=== PATIENT | female | born 1980 | race Caucasian/White ===

== ENCOUNTER 2019-09-26 17:15 | Emergency (ER) | payer SELFPAY ==
[~2019-09-26] VITALS: Ht 162.6 cm; Wt 81.8 kg
[2019-09-26 19:12] VITALS: BP 112/79; PULSE 58; TEMP 98.6
== END 2019-09-26 19:13 | disposition home or self-care (01) ==
LOC: COL.ER 17:15
DX: S09.90XA Unspecified injury of head, initial encounter (principal); R40.2412 Glasgow coma scale score 13-15, at arrival to emergency department; Z90.49 Acquired absence of other specified parts of digestive tract; Z90.710 Acquired absence of both cervix and uterus; Y04.8XXA Assault by other bodily force, initial encounter

== ENCOUNTER 2019-10-01 19:09 | Emergency (ER) | payer SELFPAY ==
[~2019-10-01] VITALS: Ht 162.6 cm; Wt 81.8 kg
[2019-10-01 19:14] VITALS: BP 108/77; TEMP 97.6
[2019-10-01] MEDS ORDERED: OMNICEF 300MG300 MG PO (19:31)
[2019-10-01 19:40] VITALS: PULSE 78
== END 2019-10-01 19:40 | disposition home or self-care (01) ==
LOC: COL.ER 19:09
DX: N61.0 Mastitis without abscess (principal)

== ENCOUNTER 2019-12-31 19:19 | Emergency (ER) | payer SELFPAY ==
[~2019-12-31] VITALS: Ht 162.6 cm; Wt 78.6 kg
[~2019-12-31 19:19] MED LIST: OMNICEF 300MG300 MG PO
[2019-12-31 19:26] VITALS: TEMP 98.5
[2019-12-31] MEDS ORDERED: FLEXERIL 1010 MG/TAB PO (21:06)
[2019-12-31] MEDS ORDERED: NORCO 325 MG-51 TAB PO (21:06)
[2019-12-31 21:19] VITALS: BP 124/82; PULSE 79
== END 2019-12-31 21:22 | disposition home or self-care (01) ==
LOC: COL.ER 19:19
DX: M47.812 Spondylosis without myelopathy or radiculopathy, cervical region (principal); R25.2 Cramp and spasm; Z90.710 Acquired absence of both cervix and uterus; Z90.49 Acquired absence of other specified parts of digestive tract
CPT/HCPCS: J1885; J2360

== ENCOUNTER 2020-03-23 15:48 | Emergency (ER) | payer SELFPAY ==
[~2020-03-23] VITALS: Ht 162.6 cm; Wt 75.0 kg
[~2020-03-23 15:48] MED LIST changes: +DOXYCYCLINE HY100 MG PO; +FLEXERIL 1010 MG/TAB PO; +NORCO 325 MG-51 TAB PO
[2020-03-23 16:01] VITALS: TEMP 97.6
[2020-03-23] MEDS ORDERED: PHENERGAN 25 TA25 MG PO (17:15)
[2020-03-23 17:41] VITALS: BP 101/74; PULSE 72
== END 2020-03-23 17:45 | disposition home or self-care (01) ==
LOC: COL.ER 15:48
DX: B34.9 Viral infection, unspecified (principal); Z20.828 Contact with and (suspected) exposure to other viral communicable diseases; Z88.0 Allergy status to penicillin; Z88.8 Allergy status to other drugs, medicaments and biological substances

== ENCOUNTER 2021-06-16 12:01 | Emergency (ER) | payer SELFPAY ==
[~2021-06-16] VITALS: Ht 162.6 cm; Wt 75.0 kg
[~2021-06-16 12:01] MED LIST changes: +PHENERGAN 25 TA25 MG PO
[2021-06-16 12:41] VITALS: TEMP 98.7
[2021-06-16] MEDS ORDERED: PREDNISONE20 MG PO (15:49)
[2021-06-16 15:55] VITALS: BP 120/75; PULSE 72
== END 2021-06-16 15:55 | disposition home or self-care (01) ==
LOC: COL.ER 12:01
DX: J20.9 Acute bronchitis, unspecified (principal); J45.909 Unspecified asthma, uncomplicated; F17.210 Nicotine dependence, cigarettes, uncomplicated; Z20.822 Contact with and (suspected) exposure to COVID-19
CPT/HCPCS: J7512